=== PATIENT | male | born 1955 | race Caucasian/White ===

== ENCOUNTER → 2018-01-10 09:07 | Outpatient (CLI) | payer BC | END | disposition home or self-care (01) | LOC: D.RAD 09:07 | DX: R05 Cough (principal) ==

== ENCOUNTER → 2018-02-21 07:17 | Outpatient (CLI) | payer BC | END | disposition home or self-care (01) | LOC: D.MRI 07:17 | DX: M54.42 Lumbago with sciatica, left side (principal) ==